=== PATIENT | female | born 1965 | race American Indian/Alaskan Native ===

== ENCOUNTER 2018-07-04 08:54 | Emergency (ER) | payer OTHER ==
[~2018-07-04] VITALS: Ht 152.4 cm; Wt 99.8 kg
[~2018-07-04 08:54] MED LIST: BENTYL10 MG PO; IBUPROFEN400 MG PO; LORAZEPAM1 MG PO; NORCO 5-325 TA1 EACH PO; PREVACID30 MG PO; TUMS ULTRA400 MG PO; TYLENOL EXTRA500 MG PO; VICODIN HP 10-1 EAC1 PO
[2018-07-04] MEDS ORDERED: MELOXICAM7.5 MG PO (09:46)
== END 2018-07-04 10:27 | disposition home or self-care (01) ==
LOC: ED 08:54
DX: M25.562 Pain in left knee (principal); Z88.2 Allergy status to sulfonamides; Z88.5 Allergy status to narcotic agent; Z88.6 Allergy status to analgesic agent; Z79.899 Other long term (current) drug therapy
CPT/HCPCS: 73502; 73560; 96372; 99283-25; J1885

== ENCOUNTER 2020-07-26 02:56 | Emergency (ER) | payer OTHER ==
[~2020-07-26] VITALS: Ht 152.4 cm; Wt 136.1 kg
[~2020-07-26 02:56] MED LIST changes: +MELOXICAM7.5 MG PO
[2020-07-26] MEDS ORDERED: NITROGLYCERIN0.4 MG SL (16:33)
[2020-07-26] MEDS ORDERED: ADULT LOW DOSE81 MG PO (16:33)
--- NOTE | 2020-07-26 23:52 | EKG ---
[facility] [address] [facility] [place], [place] [address] Signed Sinus tachycardia Otherwise normal ECG No previous ECGs available Confirmed by LUZ RYAN MD ([id number]) on 07/26/2020 11:52:30 PM Electronically Signed By: LUZ RYAN MD 07/26/20 2352 PATIENT NAME: MARYRANDI Electrocardiogram DATE OF : 69 PHYSICIAN: LUZ RYAN MD REPORT #: [id number] REPORT IS CONFIDENTIAL AND NOT TO BE RELEASED WITHOUT AUTHORIZATION
== END 2020-07-26 03:50 | disposition home or self-care (01) ==
LOC: ED 02:56
DX: R55 Syncope and collapse (principal); Z88.8 Allergy status to other drugs, medicaments and biological substances; Z88.5 Allergy status to narcotic agent; Z88.2 Allergy status to sulfonamides; Z79.899 Other long term (current) drug therapy
CPT/HCPCS: 93005; 93010; 99284-25

== ENCOUNTER 2020-07-26 12:47 | Emergency (ER) | payer OTHER ==
[~2020-07-26] VITALS: Ht 152.4 cm; Wt 136.1 kg
--- OUTSIDE RECORDS SUMMARY | 2020-07-26 12:50 | XMS ---
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 Jackie has no Care Guidelines for this patient. Stephanie V[facility] (12 MO.) [facility] TOTAL 2 NOTE: Visits indicate total known visits. ED/[facility] VISIT TRACKING (12 MO.) 07/26/2020 12:[address] [facility] [place] TYPE: Emergency COMPLAINT: - CHEST PAIN 07/26/2020 02:56 [facility] [place] TYPE: Emergency COMPLAINT: - POSSIBLE SYNCOPE INPATIENT VISIT TRACKING (12 MO.) No inpatient visits to display in this time frame [email or web address]
[2020-07-26] MEDS ORDERED: ADULT LOW DOSE81 MG PO (16:33)
[2020-07-26] MEDS ORDERED: NITROGLYCERIN0.4 MG SL (16:33)
--- NOTE | 2020-07-26 23:54 | EKG ---
[facility] [address] [facility] [place] [address] Signed Sinus tachycardia Possible Left atrial enlargement Borderline ECG Confirmed by LUZ RYAN MD ([id number]) on 07/26/2020 11:53:59 PM Electronically Signed By: LUZ RYAN MD 07/26/20 2354 PATIENT NAME: RANDI HERNANDEZ ZULEYKA Electrocardiogram DATE OF : 69 PHYSICIAN: LUZ RYAN MD REPORT #: [id number] REPORT IS CONFIDENTIAL AND NOT TO BE RELEASED WITHOUT AUTHORIZATION
--- NOTE | 2020-07-26 23:55 | EKG ---
[facility] [address] [place] [address] Signed Sinus tachycardia Possible Inferior infarct , age undetermined Abnormal ECG When compared with ECG of 26-JUL-2020 12:49, (Unconfirmed) Borderline criteria for Inferior infarct are now present Confirmed by LUZ RYAN MD ([id number]) on 07/26/2020 11:54:47 PM Electronically Signed By: LUZ RYAN MD 07/26/20 2355 PATIENT NAME: RANDI HERNANDEZ ZULEYKA Electrocardiogram DATE OF : 69 PHYSICIAN: LUZ RYAN MD REPORT #: [id number] REPORT IS CONFIDENTIAL AND NOT TO BE RELEASED WITHOUT AUTHORIZATION
== END 2020-07-26 17:49 | disposition home or self-care (01) ==
LOC: ED 12:47
DX: I20.9 Angina pectoris, unspecified (principal); Z20.822 Contact with and (suspected) exposure to COVID-19; I10 Essential (primary) hypertension; Z88.2 Allergy status to sulfonamides; Z88.8 Allergy status to other drugs, medicaments and biological substances; Z88.5 Allergy status to narcotic agent; Z79.899 Other long term (current) drug therapy
CPT/HCPCS: 71045; 80053; 82550; 82553; 83735; 83874; 84484; 85025; 85379; 93005; 93010; 96374; 99285-25; C9803; J2060; U0003

== ENCOUNTER 2020-08-14 12:02 | Inpatient (IN) | payer OTHER ==
[~2020-08-14] VITALS: Ht 152.4 cm; Wt 101.7 kg
[~2020-08-14 12:02] MED LIST changes: +ADULT LOW DOSE81 MG PO; +NITROGLYCERIN0.4 MG SL
--- OUTSIDE RECORDS SUMMARY | 2020-08-14 12:08 | XMS ---
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 07/27/2020-[facility] PHONE: [phone] Jackie has no Care Guidelines for this patient. Care History Medical/Surgical 07/28/2020 [facility]IENT HAS HX OF POOR COMPLIANCE WITH MEDICATIONS. - LISINOPRIL HAS NOT BEEN FILLED SINCE FEB 2020. - NO FOLLOW UP APTS HAS BEEN SCHEDULED- CLINIC WILL REACH OUT TO PATIENT FOR FOLLOW UP APT. 07/27/2020 [facility] - [facility], \T\middot;\T\nbsp; PLEASE REFER PATIENT TO [facility] FOR NON EMERGENT MEDICAL NEEDS. \T\middot;\T\nbsp; [facility] CAN SEE PATIENTS SAME DAY FOR APTS IF PATIENT CALLS FIRST THING IN THE MORNING. E.D. VISIT COUNT (12 MO.) [address] [facility]. TOTAL 3 NOTE: Visits indicate total known visits. ED/[facility] VISIT TRACKING (12 MO.) 08/14/2020 12:03 [facility] [place] TYPE: Emergency COMPLAINT: - MULTIPLE COMPLAINTS 07/26/2020 12:47 [facility] [place] TYPE: Emergency COMPLAINT: - CHEST PAIN DIAGNOSES: - Allergy status to narcotic agent - Chest pain, unspecified - Angina pectoris, unspecified - Allergy status to sulfonamides - Allergy status to other drugs, medicaments and biological substances - Other correction (current) drug therapy - Essential (primary) hypertension 07/26/2020 02:[address] [facility] [place] TYPE: Emergency COMPLAINT: - POSSIBLE SYNCOPE DIAGNOSES: - Allergy status to narcotic agent - Allergy status to other drugs, medicaments and biological substances - Syncope and collapse - Allergy status to sulfonamides - Other correction (current) drug therapy INPATIENT VISIT TRACKING (12 MO.) No inpatient visits to display in this time frame [id number]
--- NOTE | 2020-08-14 15:30 | NUR ---
Patient arrives to unit via stretcher with eyes closed and lethargic. Patient opens eyes to voice and groans. Patient assisted to hospital bed with nursing staff. Vitals taken, assessment complete. Patient mumbling and incoherent majority of the time, oriented to location and self. Patient unable to coherently communicate events of the day. Elam in place, 800 mls of yellow urine emptied. Insulin gtt infusing at 8.8 units/hr. Fluid bolus infusing. Patient requests drink of water, ice chips are provided. Patient positioned in bed for comfort. This RN in room to continue assessment.
--- NOTE | 2020-08-14 16:00 | NUR ---
BG over 600, insulin gtt titrated to 13.2 units/hr. Patient remains lethargic, with eyes closed. Patient will open eyes and respond to direction. Patient continues to mumble when speaking. New IV placed, labs drawn and sent off.
[2020-08-14] MEDS ORDERED: LORATADINE10 MG PO (16:42)
[2020-08-14] MEDS ORDERED: ACETAMINOPHEN325 M1 PO (16:42)
[2020-08-14] MEDS ORDERED: OMEPRAZOLE20 MG PO (16:43)
[2020-08-14] MEDS ORDERED: LISINOPRIL10 MG PO (16:43)
[2020-08-14] MEDS ORDERED: FIBER SMOOTH PO (16:46)
--- NOTE | 2020-08-14 17:00 | NUR ---
BG over 600, insulin gtt titrated to 17.6 units/hr. Fluids hung and infusing at 250 mls/hr.
--- NOTE | 2020-08-14 18:06 | NUR ---
PATIENT BECOMES NAUSEOUS AND STARTS TO DRY HEAVE AND VOMIT. PT GIVEN ZOFRAN. CBG STILL >600 AND INSULIN GTT UP TO 22 UNITS/HR PER PROTOCOL. PT STARTED TO TALK MORE. PT GIVEN ICE CHIPS ONLY FOR MOUTH COMFORT. PT REPORTS, "I THINK MY OLD MAN DID THIS ON PURPOSE." BED ALARM REMAINS ON FOR SAFETY.
--- NOTE | 2020-08-14 19:00 | NUR ---
BG of 515, insulin gtt remains at 22 units/hr. Patient beginning to open eyes more voluntarily, states "I'm starting to feel better, I feel like I'm coming in and out." Patient denies needs, call light within reach.
--- NOTE | 2020-08-14 19:25 | NUR ---
REPORT RECIEVED FROM CCU RN, CARE OF PATIENT ASSUMED AT THIS TIME.
--- NOTE | 2020-08-14 19:30 | NUR ---
PT AT [employer]OM[employer] TESTER REQUESTING TO HAVE PATIENTS CELL PHONE. PT ORIENTED TO SELF, PLACE, AND SITUATION. STATES SHE DOES NOT WANT HER TO HAVE PHONE. CLOUD AUTOMATION TESTER AND BLOCKING MACHINE TENDER NOTIFIED.
--- NOTE | 2020-08-14 20:13 | NUR ---
assessment completed. Pt blood glucose of 399. insulin drip titrated down to 18 ml/hr. Pt oriented x 3. Knows where she is and can recollect some events. heart rate in the 120-130 at rest. spo2 94 percent on room air. fine crackles noted in both lung bases. respirations even and but labored. pedal pulses bounding. iv fluids and insulin drip continue to infuse. Pt very drowsy and sleeps through most of assessment. wakes to voice. Call light within reach. Bed alarm in place. will continue to monitor.
--- NOTE | 2020-08-14 22:17 | NUR ---
INSULIN DRIP TITRATED FOR BLOOD GLUCOSE OF 278 (SEE EMAR). PT REMAINS LETHARGIC, BUT OPENS EYES TO TOUCH AND VOICE. LABS DRAWN, WELL TOLERATED. CALL LIGHT WITHIN REACH, BED ALARM IN PLACE.
--- NOTE | 2020-08-14 23:15 | NUR ---
NEW TELEPHONE ORDERS RECIEVED AXEL RODRÍGUEZ AFTER 2200 LABS RESULTED.
--- NOTE | 2020-08-15 00:10 | NUR ---
assessment completed. pt remains oriented to self, location, and situation but is still extremely sleepy. falls alseep during blood sugar check and assessment. insulin drip titrated for cbg of 202 (see emar). Bed alarm in place, call light within reach. will continue to monitor.
--- NOTE | 2020-08-15 01:23 | NUR ---
IV FLUIDS CHANGED FOR BLOOD GLUCOSE LESS THAT [address] PANIAGUA ORDER.
--- NOTE | 2020-08-15 02:05 | NUR ---
INSULIN DRIP TITRATED FROM CBG OF 183 (SEE EMAR). PT RESTING SOUNDLY, BREATHING EVEN AND UNLABORED. HEART RATE 110-115 AT REST. CALL LIGHT WITHIN REACH, BED ALARM IN PLACE, WILL CONTINUE TO MONITOR.
--- NOTE | 2020-08-15 04:00 | NUR ---
in room to draw blood for lab and glucose check. Insulin drip titrated (see emar). pt denies further needs at this time.
--- NOTE | 2020-08-15 05:00 | NUR ---
assessment completed. pt more awake, alert and oriented at this time. states she feels better. able to recollect events that lead to her coming to the hospital. oral care performed. assisted pt with repositioning in bed. pt has a productive cough. fine crackles in both bases. pt denies pain. call light within reach. no further needs at this time.
--- NOTE | 2020-08-15 05:36 | NUR ---
Dr. Fernandez updated on pt labs by PETER Tubbs while this RN was in pts room. orders recieved (see emar). pt given oral potassium with water. well tolerated. pt remains alert and oriented. call light within reach. denies further needs at this time.
--- NOTE | 2020-08-15 08:15 | NUR ---
IN PATIENT'S ROOM. PATIENT'S BLOOD SUGAR WAS 187 AND INSULIN GTT WAS TITRATED DOWN TO 7.2 UNITS/HR. IVF CONTINUE AT 135 ML/HR. PATIENT ABLE TO STATE WHY SHE IS HERE AND UNDERSTANDS THAT SHE IS LIKELY DIABETIC. PATIENT STATES SHE IS FEELING BETTER BUT STILL NOT FEELING NORMAL. PATIENT NOW ON PHONE TALKING WITH HER FAMILY. ASSESSMENT COMPLETE. WILL CONTINUE TO MONITOR.
--- NOTE | 2020-08-15 09:05 | NUR ---
CBG 201, INSULIN GTT UP TO 9.8 UNITS/HR. PT RESTING.
--- NOTE | 2020-08-15 09:52 | NUR ---
Attempted to call pt, she does not answer her cell phone. Will attempt later or ask staff to place hospital phone in room.
--- NOTE | 2020-08-15 10:17 | NUR ---
DR. PANIAGUA IN ROOM TO SEE PATIENT. CBG 183 AND INSULIN TURNED DOWN TO 8.4 UNITS/HR. NEW IV STARTED IN RIGHT HAND AND 1000 LABS DRAWN. PT TOLERATED WELL. PLAN TO SWITCH PATIENT TO JUST WATER INFUSION AND TAKE THE D5 AWAY. PT WILL BE GIVEN SUB Q LANTUS AND SS INSULIN ONCE OFF INSULIN GTT AND EATING. WILL TURN INSULIN GTT AN HOUR AFTER LANTUS IS GIVEN. PLAN OF CARE DISCUSSED WITH PATIENT. TRAY DELIVERY AIDE CALLED AND WILL COME SEE PATIENT LATER TODAY.
--- NOTE | 2020-08-15 11:13 | NUR ---
PATIENT GIVEN 30 UNITS LANTUS AT THIS TIME. CBG 166 AND INSULIN GTT REMAINS AT 8.4 UNITS/HR. PT GIVEN EDUCATION ABOUT LANTUS. PT ABLE TO GIVE HERSELF HER OWN DOSE OF LANTUS IN HER ABDOMEN AND DID WELL WITH THIS. PT EDUCATED ON POTENTIAL SIDE EFFECTS OF LANTUS AND ALL INSULINS. PT RECEPTIVE. ACCOUNT SUPPORT REP TO BE HERE THIS AFTERNOON TO DISCUSS WITH PATIENT.
--- NOTE | 2020-08-15 11:23 | NUR ---
REECE D/C. PLAN OF CARE FOR DM CLEAR LIQUID TRAY DISCUSSED WITH PT. PT AGREEABLE AND VERBALIZES UNDERSTANDING.
--- NOTE | 2020-08-15 13:08 | NUR ---
lunch given, bed bath done, linens changed, gown changed, no other needs at this time. call light with in reach
--- NOTE | 2020-08-15 14:06 | NUR ---
UNABLE TO VISIT DUE TO PRECAUTIONS. WILL FOLLOW NEEDED
--- NOTE | 2020-08-15 14:14 | NUR ---
PATIENT REMAINS SITTING IN CHAIR AND RESTING. PT'S SON GIO CALLED AND GIVEN AN UPDATE PER HIS REQUEST.
--- NOTE | 2020-08-15 14:44 | NUR ---
Attempted diabetes education consult. Pt denies meeting at time time due to not feeling well. Will attempt again tomorrow. Nursing notified.
--- NOTE | 2020-08-15 15:16 | NUR ---
PATIENT REMAINS SITTING IN CHAIR AND IS QUITE TIRED. CLINICAL ASST COMES BY TO EDUCATE PATIENT, HOWEVER SHE IS UNWILLING TO DISCUSS THIS AT THIS TIME DUE TO FEELING FATIGUED. PATIENT'S BLOOD SUGAR CHECKED AND FOUND TO BE [address] PANIAGUA NOTIFIED AND 12 UNITS OF HUMALOG GIVEN TO CORRECT THIS GLUCOSE LEVEL. PT DENIES FURTHER NEEDS. CONTINUE TO MONITOR.
--- NOTE | 2020-08-15 16:27 | NUR ---
SPOKE WITH PT'S DAUGHTER ERIC. STATES SHE WILL CALL HER MOTHER BACK LATER TONIGHT OR TOMORROW PT WAS SLEEPING. DR PANIAGUA ADVANCED HER DIET AND THIS RN ORDERED HER DINNER. PT DROWSY BUT SITTING UP IN CHAIR.
--- NOTE | 2020-08-15 18:27 | NUR ---
PATIENT REMAINS SITTING IN CHAIR AND EATING HER DINNER. PT ABLE TO GIVE HERSELF HER OWN INSULIN INJECTIONS. PT DOING WELL WITH THIS. PATIENT DENIES FURTHER NEEDS. PATIENT HAS BLOOD DRAW AT 1999. WILL CONTINUE TO MONITOR.
--- NOTE | 2020-08-15 19:17 | NUR ---
DISCUSSED WITH DR. PANIAGUA PATIENT'S LIPASE THAT WAS 766. PATIENT TO BE NPO IN AM FOR POTENTIAL ABDOMINAL U/S. PT DENIES PAIN WITH EATING AND TOLERATED HER DINNER OKAY. PT STILL RESTING IN BED. REPORT TO SENIOR ORACLE DBA.
--- NOTE | 2020-08-15 19:34 | NUR ---
report recieved, care of patient assumed at this time. Pt up in chair resting. denies any needs at this time. Call light within reach. will continue to monitor.
--- NOTE | 2020-08-15 20:15 | NUR ---
ASSESSMENT COMPLETED. PT IS ALERT AND ORIENTED X4, ALTHOUGH REAMINS FATIGUED. LUNG SOUNDS CLEAR, RESPIRATIONS EVEN AND UNLABORED. HEART RATE 100-110 AT REST. PT UP TO BSC TO VOID, AND THEN TRANSFERRED TO BED. HEART RATE UP TO 115 WITH EXERTION. MEDICATIONS ADMINISTRATION AND DIABETIC EDUCATION COMPLETED. BLOOD DRAWN AND SENT TO LAB. DISCUSSED PLAN OF CARE FOR EVENING. PT NOW SLEEPING. CALL LIGHT WITHIN REACH. WILL CONTINUE TO MONITOR.
--- NOTE | 2020-08-15 22:01 | EKG ---
[facility] [address] [facility] [place], [place] [address] Signed Sinus tachycardia Right atrial enlargement Possible Inferior infarct (cited on or before 26-JUL-2020) Abnormal ECG When compared with ECG of 26-JUL-2020 15:55, ST now depressed in Lateral leads Confirmed by DELANEY PANIAGUA MD ([id number]) on 08/15/2020 10:01:43 PM Electronically Signed By: DELANEY PANIAGUA MD 08/15/202200 PATIENT NAME: MARYRANDI Electrocardiogram DATE OF : 69 PHYSICIAN: DELANEY PANIAGUA MD REPORT #: [id number] REPORT IS CONFIDENTIAL AND NOT TO BE RELEASED WITHOUT AUTHORIZATION
--- NOTE | 2020-08-15 22:15 | NUR ---
IV FLUIDS DECREASED TO 100 ML/HR, PER MD ORDER (SEE EMAR). pT RESTING WITH EYES CLOSED, BREATHING EVEN AND UNLABORED. CALL LIGHT WITHIN REACH. NO ASSESSED NEEDS AT THIS TIME.
--- NOTE | 2020-08-16 00:23 | NUR ---
Assessment completed. Pt up to bsc to void. hear rate in to 120 with exertion. pt remains drowsy, states "I just feel like im sleeping but I still wake up exhausted. assisted pt with repositioning in bed. provided education on course of acute illness. call light within reach. no further needs at this time.
--- NOTE | 2020-08-16 02:00 | NUR ---
NEW BAG OF IV FLUIDS HUNG, PATIENT BLOOD GLUCOSE CHECKED AND INSULIN ADMINISTERED (SEE EMAR). CALL LIGHT WITHIN REACH. PT DENIES FURTHER NEEDS AT THIS TIME.
--- NOTE | 2020-08-16 05:30 | NUR ---
PT UP TO BSC.COMPLAINS OF MID ABDOMINAL PAIN AND GENERALLY UNWELL. STATES THE PAIN IS AN ACHE. BOWEL TONES ACTIVE. NO TENDERNESS ON PALPATION. VITAL SIGNS STABLE. TALKED TO PATIENT ABOUT PLAN FOR AN ULTRASOUND LATER THIS MORNING. ASSISTED WITH REPOSITIONING IN BED, CALL LIGHT WITHIN REACH. NO FURTHER NEEDS AT THIS TIME.
--- NOTE | 2020-08-16 08:23 | NUR ---
PATIENT USES CALL LIGHT AND STATES SHE NEEDS TO USE BATHROOM. UP TO BATHROOM WITH SBA. PT VOIDS AND HAS SMALL BM. PT ENDORSES 10/10 ABDOMINAL PAIN THAT STARTED LAST NIGHT. PT DESCRIBES A DULL ACHE. NO U/S OF ABD THIS AM DUE TO PT HAS ALREADY HAD CHOLECYSTECTOMY. PT CBG 261 - SS AND LANTUS GIVEN AND PT ABLE TO DO INJECTIONS HERSELF. PLAN OF CARE DISCUSSED. ASSESSMENT COMPLETE. CALL LIGHT WITHIN REACH. IVF OF STERILE WATER CONTINUE AT 100 ML/HR. PT NOW RESTING.
--- NOTE | 2020-08-16 09:16 | NUR ---
breakfast given, fresh water, face and hands washed. no other needs at this time.
--- NOTE | 2020-08-16 09:36 | NUR ---
pt. used call light to notify RN that she was hot for some reason. no other reasons at [facility] time
--- NOTE | 2020-08-16 09:44 | NUR ---
PATIENT USES CALL LIGHT TO REPORT "GETTING HOT" pts temp was 97.7 orally. pt up to bathroom to void. pt back to chair. pt reports that she is having no pain, and no nausea, but her stomach "feels a little off still, not painful". pt denies further needs at this time. pt in chair, table and call light within reach.
--- NOTE | 2020-08-16 10:26 | NUR ---
ROUNDING pt on the phone at this time. VSS, no needs at this time. pt in chair, table and call light within reach, pts curtain open, pt visible from nurses station.
--- NOTE | 2020-08-16 11:00 | NUR ---
Spoke with Marisel by phone. She states she lives with her so and two children. She does not use any DME and no steps into home. She is concern if her children and spouse have been tested for covid. Inform ed I can speak with Nirali from the [facility] and find out. Discussed need to go home and pt denies needs, but would like a commode as she had difficulty making it to the bathroom as she does have some incontinence. Also will need glucometer. Will work with Ashlee and Dr. Fernandez for orders.Pt plans on dc to home with SO.
--- NOTE | 2020-08-16 11:11 | NUR ---
MD PANIAGUA TO BEDSIDE Dr Paniagua meeting with pt at this time. wants to keep pt on Diabetic Clears diet at this time, and wants to do further imaging for diagnostics.
--- NOTE | 2020-08-16 11:40 | NUR ---
Also will need glucometer. Called and spoke with and they ask we order commode from [facility] and send an Rx to [facility] for the glucometer as they will provide a kit for new diabetics. Updated Nadia and she is in agreement. Completed [place] equipment lending form and spoke with Dr. Fernandez. He completed Rx for glucometer and strips. Pt signed [facility] form and I faxed. I called Cynthia at [facility] and she will order the diabetic kit which includes a glucometer. Rx was faxed to [facility].
--- NOTE | 2020-08-16 12:00 | NUR ---
CBG CHECKS + MED PASS + ASSESSMENT pt CBG was 292, 9 units insulin given per sliding scale orders. pt able to demonstrate proper insulin administration on self. pt assessment complete, VSS. pt reports minimal tolerable pain in her right upper lateral thigh area. pt denies nausea at this time. pt in chair, table and call light within reach.
--- NOTE | 2020-08-16 13:30 | NUR ---
PATIENT TAKEN TO CT AT THIS TIME.
--- NOTE | 2020-08-16 14:00 | NUR ---
ROUNDING pt in room, lying in bed, breathing even and unlabored, table and call light within reach.
--- NOTE | 2020-08-16 14:07 | NUR ---
PT ON PRECAUTIONS, UNABLE TO VISIT IN PERSON. WILL FOLLOW ABLE
--- NOTE | 2020-08-16 15:30 | NUR ---
MED PASS + ASSESSMENT pt in bed, denies nausea and pain at this time. pt assessment complete, VSS. pt is reporting "feeling tired". pt up to bathroom to void, amount documented. pt refuses up to chair at this time and prefers to be back in bed at this time. pt reports feeling "so tired since the scans were done". pt in bed, table and call light within reach. pt also has med due at this time, pt given fresh water and was able to take med without difficulty at this time.
--- NOTE | 2020-08-16 15:48 | NUR ---
ROUNDING pt reports pain along her right side of her body, that is now from her hips to her head. pt denies nausea at this time. pt refuses her oxycodone medication PRN, and requests something gun welder "like tylenol" for her pain. Dr Fernandez made aware of this, and agrees to order her something PRN for pain that isn't narcotic. pt in bed, table and call light within reach.
--- NOTE | 2020-08-16 17:00 | NUR ---
CBG & MED PASS CBG was 251, 9 units given per sliding scale orders. pt denies further needs at this time. table and call light within reach.
--- NOTE | 2020-08-16 18:00 | NUR ---
BACK IN ROOM FOR CALL LIGHT pt accidentally put salt and pepper into her hot tea instead of her broth. new hot tea and salt and pepper brought to her at this time. pt denies further needs at this time. table and call light within reach.
--- NOTE | 2020-08-16 20:15 | NUR ---
SHIFT REPORT RECEIVED FROM PETER JONES. PT CALLED AT THIS TIME TO USE BATHROOM. UP WITH SBA, SLIGHTLY WOBBLY ON FEET. PT VOIDED AND RETURNED TO BED. DROSWSY BUT ORIENTED, SLIGHTLY FORGETFUL OF EVENT. LUNGS CLEAR, RA. HR REGULAR. BOWEL TONES HYPOACTIVE, ABDOMEN SLIGHTLY TENDER, DENIES NAUSEA. SKIN INTACT, NO EDEMA NOTED. IV SITES INTACT AND PATENT. CB, 3 UNITS SLIDING SCALE ADMINISTERED.
--- NOTE | 2020-08-16 21:42 | NUR ---
PT CALLED, UP TO BATHROOM WITH SBA, APPEARS MORE STEADY ON HER FEET. VOIDED 200ML, SHE HAD DRIBBLED A LITTLE BIT IN THE BED. NEW CHUX AND ATTENDS PROVIDED. PT DENIES FURTHER REQUESTS AT THIS TIME, CALL LIGHT WITHIN REACH.
--- NOTE | 2020-08-16 23:42 | NUR ---
PATIENT MOVED INTO ROOM #115 FROM CCU. PATIENT BEING ORIENTED TO ROOM AND ROUTINE BY THIS RN.
--- NOTE | 2020-08-16 23:44 | NUR ---
REPORT GIVEN TO SUGAR CONTROLLER, NEGRITA. PT UP TO BATHROOM AT THIS TIME WITH SBA, RETURNED TO BED. TRANSFERRED VIA BED WITH ALL BELONGINGS TO ROOM 115.
--- NOTE | 2020-08-17 00:30 | NUR ---
PATIENT SETTLED INTO THE ROOM AND DEMONSTRATED USE OF CALL LIGHT AND ABOVE THE BED LIGHT SWITCH. PATIENT REMAINS A LITTLE TEARFUL ABOUT FINDING OUT SHE IS A DIABETIC. THIS RN IS IN A PAPR SO BOWEL TONES ARE HYPOACTIVE PER CCU RN REPORT WELL CLEAR LUNG SOUNDS PER CCU RN REPORT. PATIENT DENIES PAIN. PATIENT HAS WATER AT BEDSIDE AND 2 EXTRA BLANKETS GIVEN PER REQUEST. IF FLUIDS CONTINUE AT 100ML/HR. PATIENT IS READY TO TRY AND GET SOME SLEEP. LIGHTS TURNED DOWN AND PATIENT'S CALL LIGHT IS IN REACH.
--- NOTE | 2020-08-17 00:59 | NUR ---
0ATIENT RESTING QUIETLY, EYS CLOSED, RESPIRATIONS REGULAR AND EVEN, CALL LIGHT IN REACH.
--- NOTE | 2020-08-17 01:40 | NUR ---
PATIENT UP TO THE BATHROOM TO VOID AND BACK TO BED WITH 1PSBA. NO OTHER NEEDS AT THIS TIME. CALL LIGHT IN REACH.
--- NOTE | 2020-08-17 03:15 | NUR ---
PATIENT RESTING QUIETLY, EYES CLOSED, RESPIRATIONS REGULAR AND EVEN, CALL LIGHT IN REACH.
--- NOTE | 2020-08-17 05:24 | NUR ---
PATIENT HAS SLEPT MOST OF THE TIME SICE HER ARRIVAL ON MED/SURG FROM CCU. UNABLE TO LISTEN TO HERAT, LUNG OR BOWEL TONES DUE TO USE OF PAPR. PATIENT HAS DENIED PAIN AND HER VS REMAIN STABLE. RESPIRATIONS HAVE BEEN REGULAR AND UNLABORED WITH NO S/S OF RESPIRATORY DISTRESS. PATIENT DENIES ANY NAUSEA SINCE ARRIVAL TO MED/SURG. AM LABS ARE BEING DRAWN AND AND PATIENT IS JUST BACK TO BED AFTER 1PSBA TO THE RESTROOM AND BACK TO BED. CALL LIGHT IS IN REACH.
--- NOTE | 2020-08-17 07:26 | NUR ---
REPORT GIVEN TO AMI GREEN, PATIENT RESTING QUIETLY AT THIS TIME. CALL LIGHT IS IN REACH.
--- NOTE | 2020-08-17 07:47 | NUR ---
SHIFT REPORT FROM NURSE REES. PT IN BED, EYES CLOSED. NO APPARENT NEEDS AT THIS TIME. CALL LIGHT WITHIN REACH.
--- NOTE | 2020-08-17 08:45 | NUR ---
ASSESSMENT AND MED PASS COMPLETE. PT WAS UP TO TOILET TO VOID; URINE MISSED THE HAT BUT DARK, TARRY APPEARING BOWEL MOVEMENT NOTED. pt REPORTS THAT SHE FEELS "LIKE THE WEIGHT HAS BEEN LIFTED TODAY" AND REPORTS FEELING MUCH BETTER. LUNG SOUNDS CLEAR. pt REPORTS NO PAIN AT THIS TIME. VSS. pt REMAINS ON RA AND NO SOB. pt TOLERATING CLEAR LIQUID DIET WELL. NO FURTHER NEEDS AT THIS TIME. CALL RADHIKA JONES.
--- NOTE | 2020-08-17 09:56 | NUR ---
CALL LIGHT ANSWERED. pt C/O PAIN 04/01 IN L GROIN. pt DESCRIBES THIS A SHARP STABBING PAIN. pt REPORTS THAT SHE HAD SIMILAR PAIN YESTERDAY "BUT IT WENT AWAY". 500MG PO PRN TYLENOL ADMINISTERED. FRESH WATER GIVEN. CALL LIGHT WITHIN REACH. NO FURTHER NEEDS AT THIS TIME.
--- NOTE | 2020-08-17 10:25 | NUR ---
SPOKE WITH pt's DAUGHTER FOR UPDATE. pt's DAUGHTER REPORTS THAT pt HAS BEEN HAVING VAGINAL BLEEDING AND HAD AT ONE TIME HAD A "MESH" PLACED ABOUT 20YR AGO. ACCORDING TO DAUGHTER, pt HAS BEEN HAVING LOWER GROIN PAIN EVEN BEFORE THIS HOSPITALIZATION. pt HAS GONE THROUGH MENOPAUSE SO VAGINAL BLEEDING IS NOT LIKELY MENSTRAL CYCLE. NO CURRENT VAGINAL BLEEDING TODAY.
--- NOTE | 2020-08-17 12:26 | NUR ---
IN ROOM FOR CBG CHECK AND LAB DRAW. CBG 177 REQUIRING 3UNITS SS INSULIN. pt ON PHONE DURING ENTIRE INTERACTION. LUNCH IN ROOM; NO FURTHER NEEDS AT THIS TIME. CALL LIGHT WITHIN REACH.
--- NOTE | 2020-08-17 13:00 | NUR ---
Spoke with pt. She is tired, denies needs. Cont. to plan for dc to home with SO.
--- NOTE | 2020-08-17 13:40 | NUR ---
PT IMPROVED-WAS ABLE TO TRANSFER TO M/S FROM CCU. STILL UNDER PRECAUTIONS. WILL FOLLOW NEEDED AND ABLE
--- NOTE | 2020-08-17 14:25 | NUR ---
PATIENT IN BED RESTING. FRESH WATER GIVEN. VITALS AND I&O'S CHARTED. CALL LIGHT IN REACH. NO FURTHER NEEDS AT THIS TIME.
--- NOTE | 2020-08-17 15:40 | NUR ---
pt UP TO SHOWER WITH ASSISTANCE FROM MARCIANO DELGADILLO. pt WAS ABLE TO SHOWER WITH MINIMAL HELP. BED LINENS REPLACED, pt BACK IN BED FOLLOWING SHOWER. pt ATE ENTIRE LUNCH AND TOLERATED WELL. NO FURTHER NEEDS AT THIS TIME. CALL LIGHT WITHIN REACH.
--- NOTE | 2020-08-17 17:30 | NUR ---
IN ROOM FOR EVENING CBG CHECK AND ASSESSMENT. pt WAS ON TOILET THIS NURSE ENTERED ROOM; STATES THAT SHE "DIDNT QUITE MAKE IT TO THE TOILET". FRESH DEPENDS AND GOWN PUT ON; pt ASSISTED BACK TO BED. CBG 244 REQUIRING 6UNITS SS INSULIN. pt ADVANCED TO 60G CARB DIET WHICH THIS NURSE ASSISTED IN ORDERING. LUNGS SOUNDS REMAIN CLEAR; TEMP 100.0 ORALLY. WILL CONTINUE TO MONITOR. pt REPEATS THAT SHE "JUST FEELS SO MUCH BETTER". CALL LIGHT WITHIN REACH.
--- NOTE | 2020-08-17 19:20 | NUR ---
REPORT RECEIVED FROM AMI GREEN. PT ON ROOM AIR, SALINE LOCKED. STATES FEELING SLEEPY AT THIS TIME AND HAS NO NEEDS. CALL LIGHT IN REACH.
--- NOTE | 2020-08-17 20:45 | NUR ---
CBG checked, 9 units SS insulin administered. Pt states feeling "100% better" than she did on admission, states diabetic and nutrition education has been "very helpful" and expresses gratitude for staff. Pt resting in bed, states slight pain to LLQ of abd but states tolerable. Pt had BM and void, ambulates to BR by self. Water refilled. VSS, A+O, on room air. States no needs at this time. Call light in reach.
--- NOTE | 2020-08-17 21:05 | NUR ---
PT RECECIVED A PHONE CALL, PT ACCEPTED CALL, NO FURTHER NEEDS
--- NOTE | 2020-08-17 23:40 | NUR ---
Rounded on patient, resting in bed with eyes closed. Resp even and unlabored. No apparent needs, call light in reach.
--- NOTE | 2020-08-18 02:18 | NUR ---
Scheduled CBG and SS insulin administered, CBG 153, 3 units given. Pt resting in bed with eyes closed. States no needs, call light in reach.
--- NOTE | 2020-08-18 05:29 | NUR ---
Call light answered, pt requests new gown as water spilled on it. Vitals taken, I/O's complete. Water refreshed. Pt ambulated to BR by self, BM x1, voiding quantity sufficient. Breakfast order taken. Pt states no further needs.
--- NOTE | 2020-08-18 09:45 | NUR ---
REPORT RECEIVED FROM NIGHT RN AND PT. CARE RESUMED. PT. IS ALERT, ORIENTED AND PLEASANT. LAP. DRESSING SITES X3 ARE CDI. BOWEL TONES ARE ACTIVE AND ABDOMEN IS TENDER AROUND SURG. SITES. LUNGS CLEAR THROUGHOUT. PT. STATES SHE TOLERATED BREAKFAST WELL AND DENIES NAUSEA. PT. REPORTS 4/10 PAIN IN ABD. ADMIN. NORCO. PT. PASSING GAS AND AMBULATING WELL. PT. LEFT RESTING IN BED WITH CALL LIGHT IN REACH.
--- NOTE | 2020-08-18 10:50 | NUR ---
PATIENT IN BED RESTING WITH EYES CLOSED. FRESH WATER GIVEN. VITALS AND I&O'S CHARTED. CALL LIGHT IN REACH. NO FURTHER NEEDS AT THIS TIME.
--- NOTE | 2020-08-18 10:51 | NUR ---
HAD MESSAGE FROM SHAUN ALMAZAN [facility] ASKING IF PATIENT WAS ALREADY SET UP WITH NEEDS AT CLINIC AND FOR A CALL BACK [phone]. RETURNED CALL AND LEFT MESSAGE THAT HER RX FOR GLUCOMETER WAS SENT TO [facility] AT [facility] AND DARLEEN HAD REQUEST FOR COMMODE.
[2020-08-18] MEDS ORDERED: LANTUS100 UNITS/ SUB-Q (10:57)
[2020-08-18] MEDS ORDERED: INSULIN SYRING1 EA47 MISC (10:58)
[2020-08-18] MEDS ORDERED: ONDANSETRON ODT4 MG SL (10:59)
--- NOTE | 2020-08-18 11:20 | NUR ---
CALLED AND SPOKE WITH MYSTY RN FROM [facility]. SHE STATES SHE JUST FINISHED A LENGTHY DISCUSSED BY PHONE WITH PATIENT. SHE STATES PATIENT SEEMS TO HAVE A GOOD GRASP ON HER NEW DIAGNOSIS OF DIABETES AND HER QUARATINE FOR COVID. SHE STATES THEY HAVE HER SET UP WITH THEIR WEEKEND COVERAGE RN WHO WILL BE CALLING HER DAILY AT 0900 TO CHECK WITH HER AND HELP HER WITH ANY QUESTIONS OR CONCERNS. SHE STATES IF PATIENT HAS MEDICATION RX SENT, PATIENT NEEDS TO HAVE THOSE AND HER GLUCOMETER PICKED UP BY 1230 THE PHARMACY CLOSES THEN TODAY. I CALLED ROLLWAY WORKER WHO IS GOING INTO ROOM AND HAD HER TELL PATIENT TO HAVE SOMEONE GO OUT AND SUB ARC OPERATOR HER PHARMACY ITEMS ANETA THEY CLOSE AT 1230.
--- NOTE | 2020-08-18 12:01 | NUR ---
SPOKE WITH PATIENT BY PHONE IN ROOM. SHE STATES SHE FOUND A FAMILY MEMBER TO GO GET HER MEDS FROM [facility]. DISCUSSED THE PLAN AGAIN THAT SHE WILL HAVE A RN FROM [facility] CALLING HER EACH DAY TO MAKE SURE SHE IS DOING OK AND ANSWER ANY CONCERNS. PATIENT IS AWARE. PATIENT STATES SHE FEELS GOOD ABOUT GETTING HOME AND FEELS SHE KNOWS WHAT SHE NEEDS TO DO FOR HER HEALTH AT HOME. PHOTOLITHOGRAPHER IS IN THE ROOM GOING OVER DISCHARGE NOW. PATIENT HAS NO QUESTIONS.
--- NOTE | 2020-08-18 12:34 | NUR ---
PT STILL UNDER PRECAUTIONS, WILL FOLLOW NEEDED
--- NOTE | 2020-08-18 12:39 | NUR ---
THIS NURSE REVIEWED ALL DISCHARGE INSTRUCTIONS WITH PATIENT AND ANSWERED ALL QUESTIONS. PT. DEMONSTRATED BG CHECK AND INSULIN ADMIN. PT. TOLERATED WELL. 2 IV REMOVED WITH CATH. INTACT. LEFT WITH ALL BELONGINGS BY WHEELCHAIR AND PICKED UP BY CAR TO HOME.
--- NOTE | 2020-08-18 13:28 | NUR ---
CHART NOTES AND DISCHARGE SENT TO [facility].
== END 2020-08-18 12:30 | disposition home or self-care (01) | DRG 637 ==
LOC: ED 12:02 → CCU 14:51 → MS 08-16 23:53
PROVIDERS: ADMIT Internal Medicine; ATTEND Internal Medicine
DX: E11.10 Type 2 diabetes mellitus with ketoacidosis without coma (principal); U07.1 COVID-19; K85.90 Acute pancreatitis without necrosis or infection, unspecified; G93.41 Metabolic encephalopathy; R65.10 Systemic inflammatory response syndrome (SIRS) of non-infectious origin without acute organ dysfunction; N17.9 Acute kidney failure, unspecified; Z68.41 Body mass index [BMI] 40.0-44.9, adult; E87.0 Hyperosmolality and hypernatremia; K75.2 Nonspecific reactive hepatitis; I10 Essential (primary) hypertension; M54.9 Dorsalgia, unspecified; G89.29 Other chronic pain; E66.01 Morbid (severe) obesity due to excess calories; E86.0 Dehydration; E78.1 Pure hyperglyceridemia; E87.5 Hyperkalemia; T54.91XA Toxic effect of unspecified corrosive substance, accidental (unintentional), initial encounter; Z79.899 Other long term (current) drug therapy; Z79.1 Long term (current) use of non-steroidal anti-inflammatories (NSAID); Z79.82 Long term (current) use of aspirin; Z88.2 Allergy status to sulfonamides; Z88.5 Allergy status to narcotic agent; Z88.6 Allergy status to analgesic agent
CPT/HCPCS: 51702; 71045; 74177; 80048; 80053; 80061; 80076; 81001; 82010; 82570; 82800; 82803; 83036; 83605; 83690; 83735; 83930; 84300; 84540; 85025; 86703; 86704; 86706; 86709; 86803; 87040; 87340; 93005; 93010; 99285-25; C9803; J1650; J1815; J3480; J7030; J7070; J7131; Q9967; U0003

== ENCOUNTER 2022-04-12 09:23 | Emergency (ER) | payer OTHER ==
[~2022-04-12] VITALS: Ht 152.4 cm; Wt 112.4 kg
[~2022-04-12 09:23] MED LIST changes: +ACETAMINOPHEN325 M1 PO; +FIBER SMOOTH PO; +INSULIN SYRING1 EA47 MISC; +LANTUS100 UNITS/ SUB-Q; +LISINOPRIL10 MG PO; +LORATADINE10 MG PO; +OMEPRAZOLE20 MG PO; +ONDANSETRON ODT4 MG SL
[2022-04-12] MEDS ORDERED: LISINOPRIL20 MG PO (09:43)
== END 2022-04-12 15:33 | disposition home or self-care (01) ==
LOC: ED 09:23
DX: K92.2 Gastrointestinal hemorrhage, unspecified (principal); I10 Essential (primary) hypertension; Z88.5 Allergy status to narcotic agent; Z88.2 Allergy status to sulfonamides; Z79.82 Long term (current) use of aspirin; Z79.4 Long term (current) use of insulin; Z79.899 Other long term (current) drug therapy
CPT/HCPCS: 36415; 74177; 80053; 85025; 99284-25; Q9967